=== PATIENT | female | born 1990 | race Caucasian/White ===

== ENCOUNTER 2021-10-20 14:20 | Emergency (ER) | payer OTHER ==
[~2021-10-20] VITALS: Ht 152.4 cm; Wt 52.2 kg
[2021-10-20] MEDS ORDERED: ZOLOFT100 MG PO (14:55)
[2021-10-20] MEDS ORDERED: XANAX1 MG PO (14:56)
== END 2021-10-20 21:21 | disposition home or self-care (01) ==
LOC: ER 14:20
DX: K52.9 Noninfective gastroenteritis and colitis, unspecified (principal); E86.0 Dehydration; R10.13 Epigastric pain; Z91.011 Allergy to milk products